=== PATIENT | male | born 1990 | race Caucasian/White ===

== ENCOUNTER 2019-08-01 12:49 | Emergency (ER) | payer OTHER ==
[~2019-08-01] VITALS: Ht 190.5 cm; Wt 129.0 kg
[2019-08-01] MEDS ORDERED: KETOROLAC 30 MG/ML VIAL (J1885) IV ONE (13:15)
[2019-08-01] MEDS ORDERED: NS 1,000 ML IV ONE (13:15)
[2019-08-01] MEDS ORDERED: ONDANSETRON 4MG/2ML VIAL (J2405) IV ONE (13:15)
[2019-08-01 13:44] LABS: BASO % 0.2 % (0.0-1.0); EOS % 0.2 % (0.0-3.0); HEMATOCRIT 44.7 % (42.0-52.0); HEMOGLOBIN 15.1 g/dl (13.5-17.5); LYMPH # 1.5 10^3/uL (1.5-5.0); MEAN CORPUSCULAR HEMOGLOBIN 28.4 pg (27.0-33.0); MEAN CORPUSCULAR HGB CONC 33.8 g/dl (32.0-36.5); MEAN CORPUSCULAR VOLUME 84.2 fl (80.0-96.0); MONO # 0.4 10^3/uL (0.0-0.8); MONO % 3.6 % (0.0-5.0); NEUTROPHILS # 10.2 10^3/uL (1.5-8.5); NEUTROPHILS % 83.6 % (36.0-66.0); PLATELET COUNT, AUTOMATED 240 10^3/uL (150-450); RED BLOOD COUNT 5.31 10^6/uL (4.30-6.10); WHITE BLOOD COUNT 12.2 10^3/uL (4.0-10.0)
[2019-08-01 14:06] LABS: ALBUMIN 4.5 GM/DL (3.2-5.2); BILIRUBIN,DIRECT 0.1 MG/DL (0.0-0.2); BILIRUBIN,TOTAL 0.5 MG/DL (0.2-1.0); TOTAL PROTEIN 7.9 GM/DL (6.4-8.2)
--- NOTE | 2019-08-01 15:13 | REP ---
HISTORY: Left flank pain. COMPARISON: None. The lung bases are clear. Limited evaluation of the solid intraabdominal organs and gallbladder show no gross abnormalities. Limited evaluation of the pancreas, adrenal glands and right kidney show no gross abnormalities. Limited evaluation of the abdominal aorta and periaortic regions show no gross abnormalities. There is slight left renal enlargement and there is mild left-sided hydronephrosis and hydroureter. Seen in the left hemipelvis, there is a tiny 3 mm sized calcification which either resides within or abuts the distal left ureter. Seen within the urinary bladder on the left side there is a 3 mm sized intravesicular calcification. There is mild left-sided periureteral edema. There is a definite left hemipelvic phlebolith. The pelvic bowel loops are within normal limits. There is sigmoid colon diverticulosis. The osseous structures are within normal limits. IMPRESSION: Left renal and renal collecting system findings as described above. The small left hemipelvic calcification is potentially in the distal left ureter or is abutting it. Followup for this calcification is recommended. There is an intravesicular calcification consistent with a past ureteral calculus. Electronically Signed by Thomas Avelar DO 08/01/2019 04:01 P
[2019-08-01] MEDS ORDERED: FLOM0.4C39 PO (15:37)
[2019-08-01] MEDS ORDERED: KETO10TAB PO (15:37)
[2019-08-01 15:57] VITALS: BP 139/83
== END 2019-08-01 15:58 | disposition home or self-care (01) ==
LOC: M ED 12:49
DX: N20.0 Calculus of kidney (principal); R11.2 Nausea with vomiting, unspecified
CPT/HCPCS: 74176; 80047; 80076; 81001; 83690; 85025; 96361; 96374; 96375; 99284; J1885; J2405